=== PATIENT | male | born 1980 | race Caucasian/White ===

== ENCOUNTER 2020-07-11 13:06 | Emergency (ER) | payer OTHER ==
[2020-07-11 13:32] VITALS: BMI 38.7
[2020-07-11] MEDS ORDERED: BAMLANIVIMAB 700 MG in SODIUM CHLORIDE 180 ML IVPB ONE (15:15)
[2020-07-11 15:30] VITALS: TEMP 98.5
[2020-07-11 15:35] LABS: HEMATOCRIT 46.2 % (35.4-49); HEMOGLOBIN 15.5 GM/dL (11.7-16.9); MCH 30.1 pg (25.7-33.7); MCHC 33.7 g/dl (32.0-35.9); MEAN CELL VOLUME 89.6 fl (80-96); MEAN PLT VOLUME 8.5 fl (7.5-11.1); PLATELET COUNT 189 K/MM3 (134-434); RBC 5.15 M/mm3 (4.00-5.60); RDW 14.3 % (11.9-15.9); WHITE BLOOD COUNT 4.9 K/mm3 (4.0-10.0)
[2020-07-11 16:04] LABS: POTASSIUM 5.7 mmol/L (3.5-5.1)
[2020-07-11 16:05] LABS: CALCIUM 8.8 mg/dL (8.5-10.1)
[2020-07-11 16:06] LABS: BLOOD UREA NITROGEN 10.5 mg/dL (7-18)
[2020-07-11 16:09] LABS: CREATININE 1.2 mg/dL (0.55-1.3)
[2020-07-11 16:42] VITALS: BP 110/68; PULSE 88
== END 2020-07-11 18:24 | disposition home or self-care (01) ==
LOC: JCOVINFU 13:06 → JER 13:06 → JCOVINFU 18:24
DX: U07.1 COVID-19 (principal)
CPT/HCPCS: 36415; 80048; 85027; 99284-25; M0239; Q0239